=== PATIENT | male | born 2000 | race Caucasian/White ===

== ENCOUNTER 2024-03-24 01:27 | Emergency (ER) | payer MEDICAID ==
[~2024-03-24] VITALS: Ht 175.3 cm; Wt 102.0 kg
[2024-03-24 01:37] VITALS: O2SAT 99
[2024-03-24] MEDS ORDERED: GENTAMICIN 100MG PREMIX 100 ML IV ONE (01:45)
[2024-03-24 01:51] LABS: BASOPHILS % 0.5 % (0.0-2.0); EOSINOPHILS % 0.4 % (0.0-5.0); HEMATOCRIT. 44.6 % (42.0-52.0); LYMPHOCYTES % 28.6 % (20.0-50.0); MEAN CORPUSCULAR HEMOGLOBIN 30.5 pg (28.0-32.0); MEAN CORPUSCULAR HGB CONC 33.6 g/dL (31.0-37.0); MEAN CORPUSCULAR VOLUME 90.7 fL (80.0-94.0); MEAN PLATELET VOLUME 10.1 fl (7.4-10.4); MONOCYTES % 7.7 % (2.0-8.0); NEUTROPHILS % 62.8 % (40.0-76.0); PLATELET 281 x1000/uL (130-400); RED BLOOD CELL COUNT 4.92 mill/uL (4.7-6.1); RED CELL DISTRIBUTION WIDTH 13.3 % (11.6-14.6); WHITE BLOOD COUNT 15.3 x1000/uL (4.5-11.0)
[2024-03-24] MEDS: FENTANYL CITRATE/PF 50MCG/ML 2ML VIAL IV ONE ×2 (01:53→02:35)
[2024-03-24] MEDS: TETANUS, DIPHTHERIA, PERTUSSIS VAC/PF 0.5ML (>10YR OLD) IM ONE (01:54)
[2024-03-24] MEDS: CEFAZOLIN 1000MG PREMIX 50 ML IV ONE ×2 (01:55→01:56)
[2024-03-24 01:58] LABS: CHLORIDE 104 mEq/L (98-107); POTASSIUM 3.4 mEq/L (3.5-5.1); SODIUM 140 mEq/L (136-145)
[2024-03-24 01:59] LABS: CARBON DIOXIDE 27 mEq/L (21-32)
[2024-03-24 02:00] LABS: CALCIUM 9.4 mg/dL (8.7-10.4)
[2024-03-24 02:04] LABS: CREATININE 1.1 mg/dL (0.6-1.3); GLUCOSE 136 mg/dL (70-105); UREA NITROGEN BLOOD 15 mg/dL (9-23)
[2024-03-24] MEDS ORDERED: GENTAMICIN SULFATE 500 MG in SODIUM CHLORIDE 0.9% 100 ML IV NR (02:30)
[2024-03-24 02:59] LABS: PROTHROMBIN TIME 11.1 sec (9.6-11.0)
[2024-03-24] MEDS: MORPHINE SULFATE 4 MG/ML INJ (FOR IV/IM USE) IV ONE (03:36)
[2024-03-24 03:37] VITALS: BP 163/91; PULSE 83; RESP 13
[2024-03-24] MEDS ORDERED: IOHEXOL-350 100 ML BOTTLE ONE (05:08)
== END 2024-03-24 03:28 | disposition short-term general hospital (02) ==
LOC: ER 01:27
DX: S82.201A Unspecified fracture of shaft of right tibia, initial encounter for closed fracture (principal); S09.90XA Unspecified injury of head, initial encounter; F17.200 Nicotine dependence, unspecified, uncomplicated; W34.00XA Accidental discharge from unspecified firearms or gun, initial encounter; Y93.89 Activity, other specified; Y92.89 Other specified places as the place of occurrence of the external cause; Y99.8 Other external cause status
CPT/HCPCS: 99291; 96365; 73706; 96375; 80048; 85025; 85610; 86850; 86900; 86901; 36415; 73590; 73610; 90715; 90471; J3010; Q9967; J0690; J1580; J2270; J7050